=== PATIENT | male | born 1995 | race Caucasian/White ===

== ENCOUNTER 2021-03-19 13:10 | Emergency (ER) | payer OTHER ==
[2021-03-19] MEDS ORDERED: Lidocaine 1% with EPINEPHrine 1:100,000 10 ML MDV INJECT ONE (13:52)
--- NOTE | 2021-03-19 14:00 | EDM.PDOC ---
ED HPI GENERAL MEDICAL PROBLEM - General Chief Complaint: General Stated Complaint: PLASTIC TUBE HIT IN FACE AT WORK Time Seen by Provider: 03/19/21 13:45 Source of Information: Reports: Patient History Limitations: Reports: No Limitations - History of Present Illness INITIAL COMMENTS - FREE TEXT/NARRATIVE: Patient presents with injury to upper lip after being hit with a large plastic tube. 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 He denies LOC, vision change, vomiting, balance problems, loose teeth. It didn't knock him to the ground. It bled a bit. He denies any other pain or injuries. He says last tetanus vaccine was definitely less than 5 years ago. Treatments SHIRT CLEANER: Reports: NSAIDS Other Treatments SHIRT CLEANER: 600mg Ibuprofen face Pain Score (Numeric/FACES): 2 - Related Data Allergies Allergy/AdvReac Type Severity Reaction Status Date / Time No Known Allergies Allergy Verified 03/19/21 13:34 Past Medical History HEENT History: Reports: None Cardiovascular History: Reports: None Respiratory History: Reports: None Gastrointestinal History: Reports: GERD Genitourinary History: Reports: None Musculoskeletal History: Reports: None Neurological History: Reports: None Psychiatric History: Reports: None Endocrine/Metabolic History: Reports: None Hematologic History: Reports: None Oncologic (Cancer) History: Reports: None Dermatologic History: Reports: None - Infectious Disease History Infectious Disease History: Reports: None - Past Surgical History Head Surgeries/Procedures: Reports: None HEENT Surgical History: Reports: Other (See Below) Other HEENT Surgeries/Procedures: [place] teeth removal GI Surgical History: Reports: Appendectomy Male Surgical History: Reports: None Musculoskeletal Surgical History: Reports: None Social & Family History - Tobacco Use Tobacco Use Status *Q: Current Some Day Tobacco User Years of Tobacco use: 6 Packs/Tins Daily: 0 - Caffeine Use Caffeine Use: Reports: Coffee - Recreational Drug Use Recreational Drug Use: No ED ROS GENERAL - Review of Systems Review Of Systems: See Below Constitutional: Denies: Fever, Chills, Malaise, Weakness HEENT: Denies: Ear Pain, Throat Pain, Vision Change Respiratory: Denies: Shortness of Breath, Cough Cardiovascular: Denies: Chest Pain, Lightheadedness, Syncope GI/Abdominal: Denies: Abdominal Pain, Vomiting : Reports: No Symptoms Musculoskeletal: Denies: Neck Pain, Shoulder Pain, Arm Pain, Back Pain Skin: Denies: Cyanosis, Jaundice, Mottled, Pallor, Diaphoresis Neurological: Denies: Confusion, Dizziness, Headache, Seizure, Syncope, Trouble Speaking, Difficulty Walking Psychiatric: Denies: Agitation, Anxiety, Confusion ED EXAM, GENERAL - Physical Exam Exam: See Below Exam Limited By: No Limitations General Appearance: Alert, WD/WN, No Apparent Distress Eye Exam: Bilateral Eye: EOMI, Normal Inspection, PERRL Ears: Normal External Exam, Normal Canal, Hearing Grossly Normal, Normal TMs Nose: Normal Inspection, No Blood Throat/Mouth: Normal Teeth, Normal Voice, No Airway Compromise, Other (There is a 10 mm fairly shallow laceration just superior to middle upper lip vermilion border that is gaping slightly. We discussed options and he would like it closed with sutures.) Head: Atraumatic, Normocephalic Neck: Normal Inspection, Non-Tender, Full Range of Motion. No: Tender Lateral, Tender Midline Respiratory/Chest: No Respiratory Distress, Lungs Clear, Normal Breath Sounds Cardiovascular: Regular Rate, Rhythm, No Murmur Back Exam: Normal Inspection, Full Range of Motion. No: Paraspinal Tenderness, Vertebral Tenderness Extremities: Normal Inspection, Normal Range of Motion Neurological: Alert, Oriented, Normal Cognition, No Motor/Sensory Deficits Psychiatric: Normal Affect, Normal Mood Skin Exam: Warm, Dry, Intact, Normal Color, No Rash ED GENERAL MEDICAL PROCEDURES - Laceration/Wound Repair Upper Mid-Anterior Mouth Lac/wound length in cm: 1 Appearance: Subcutaneous, Linear, Clean Distal NVT: Neuro & Vascular Intact Anesthetic Type: Local Local Anesthesia - Lidocaine (Xylocaine): 1% with EPI Local Anesthetic Volume: 1cc Skin Prep: Providone-Iodine (Betadine) Exploration/Debridement/Repair: Wound Explored, In a Bloodless Field Closed with: Sutures Suture Size: 5-0 # of Sutures: 3 Suture Type: Nylon, Interrupted, Simple Tetanus Status Addressed: Yes Complications: No Course - Vital Signs Last Recorded V/S: Last Vital Signs Temp 97.8 F 03/19/21 13:31 Pulse 74 03/19/21 13:31 Resp 16 03/19/21 13:31 BP 150/103 H 03/19/21 13:31 Pulse Ox 96 03/19/21 13:31 - Orders/Labs/Meds Meds: Medications Discontinued Medications Generic Name Dose Route Start Last Admin Trade Name Yari PRN Reason Stop Dose Admin Lidocaine/Epinephrine 10 ml 03/19/21 13:52 03/19/21 13:58 Lidocaine 1% With Epinephrine 1:100,000 10 Ml Mdv INJECT 03/19/21 13:53 3 ml ONETIME ONE Administration - Re-Assessments/Exams Free Text/Narrative Re-Assessment/Exam: 03/19/21 14:25 Discussed findings and recommendations with patient. Sterile technique was used to close wound as above. Patient tolerated the procedure well. He is discharged to home in stable condition. Departure - Departure Time of Disposition: 14:17 Disposition: Home, Self-Care 01 Condition: Good Clinical Impression: Simple laceration of face Qualifiers: Encounter type: initial encounter Qualified Code(s): S01.81XA - Laceration without foreign body of other part of head, initial encounter - Discharge Information Instructions: Laceration Care, Adult, [id number] Referrals: Shannan Cohen MD [Primary Care Provider] - Forms: ED Department Discharge Additional Instructions: Keep wound clean. You may shower as needed. Don't submerge in pool or tub until sutures are removed. Cover with thin film of antibiotic ointment or petroleum jelly as needed to keep slightly moist over the surface. Use cold-pack for 20 minutes a few times a day as needed to reduce and control swelling. Use Ibuprofen 400-600 mg and/or Tylenol 500-1000 mg three times daily as needed for pain control. Follow up with your PCP or another clinic provider for suture removal in 7-10 days. Recheck sooner if any problems or sign of infection. Sepsis Event Note (ED) - Evaluation Sepsis Screening Result: No Definite Risk - Focused Exam Vital Signs: Vital Signs Temp Pulse Resp BP Pulse Ox 03/19/21 13:31 97.8 F 74 16 150/103 H 96
== END 2021-03-19 14:28 | disposition home or self-care (01) ==
LOC: KA.ED 13:10
DX: S01.511A Laceration without foreign body of lip, initial encounter (principal); Z72.0 Tobacco use; W26.8XXA Contact with other sharp object(s), not elsewhere classified, initial encounter; W22.09XA Striking against other stationary object, initial encounter; Y99.0 Civilian activity done for income or pay
CPT/HCPCS: 12011; 99282-25; 99283